=== PATIENT | female | born 1985 | race Caucasian/White ===

== ENCOUNTER → 2019-04-30 | Outpatient (CLI) | payer OTHER ==
[2019-04-30 14:09] LABS: FREE T4 (FREE THYROXINE) 0.74 ng/dL (0.78-2.19)
[2019-04-30 14:23] LABS: THYROID STIMULATING HORMONE 4.02 uIU/mL (0.47-4.68)
== END ==
LOC: OD 11:58
PROVIDERS: ATTEND Family Medicine
DX: E03.4 Atrophy of thyroid (acquired) (principal)
CPT/HCPCS: 36415; 84439; 84443

== ENCOUNTER → 2019-05-23 | Outpatient (CLI) | payer OTHER ==
--- NOTE | 2019-05-23 12:46 | RADIOLOGY REPORT (SQ) ---
EXAM DESCRIPTION: CHEST 2 VIEWS COMPLETED DATE/TIME: 05/23/2019 12:18 pm REASON FOR STUDY: Z02.1 ENCOUNTER FOR PRE-EMPLOYMENT EXAMINATION COMPARISON: None. EXAM PARAMETERS: NUMBER OF VIEWS: two views TECHNIQUE: Digital Frontal and Lateral radiographic views of the chest acquired. RADIATION DOSE: NA LIMITATIONS: none FINDINGS: LUNGS AND PLEURA: No opacities, masses or pneumothorax. No pleural effusion. MEDIASTINUM AND HILAR STRUCTURES: No masses or contour abnormalities. HEART AND VASCULAR STRUCTURES: Heart normal size. No evidence for failure. BONES: No acute findings. HARDWARE: None in the chest. OTHER: No other significant finding. IMPRESSION: NO ACUTE RADIOGRAPHIC FINDING IN THE CHEST. TECHNICAL DOCUMENTATION: JOB ID: [id number] [employer]- All Rights Reserved Reading location - IP/workstation name: [email or web address]
== END ==
LOC: RAD 11:54
PROVIDERS: ATTEND Family Medicine
DX: Z02.1 Encounter for pre-employment examination (principal)
CPT/HCPCS: 71046